=== PATIENT | male | born 1965 | race African-American/Black ===

== ENCOUNTER → 2016-09-03 | Outpatient (CLI) | payer BC ==
[~2016-09-03] MED LIST: ASPIR 8181 MG PO; LIPITOR TAB 2020 MG PO; LISINOPRIL5 MG PO; TOPROL XL 25 MG25 MG PO; ZESTRIL10 MG PO
== END ==
LOC: HEART 5 08:08
DX: R07.9 Chest pain, unspecified (principal); R53.83 Other fatigue
CPT/HCPCS: 78452; A9502

== ENCOUNTER → 2016-09-24 | Outpatient (CLI) | payer BC ==
[~2016-09-24] VITALS: Ht 167.6 cm; Wt 75.7 kg
[2016-09-24 06:45] LABS: RED BLOOD COUNT 4.12 M/UL (4.20-5.50); WHITE BLOOD COUNT 6.2 K/UL (4.5-11.0)
[2016-09-24 07:04] LABS: BUN/CREATININE RATIO 28 (0-10)
== END | disposition home or self-care (01) ==
LOC: CATH 06:12
PROVIDERS: Internal Medicine
DX: I25.118 Atherosclerotic heart disease of native coronary artery with other forms of angina pectoris (principal); I42.9 Cardiomyopathy, unspecified; I10 Essential (primary) hypertension; E78.5 Hyperlipidemia, unspecified; I25.2 Old myocardial infarction; Z79.899 Other long term (current) drug therapy; R06.02 Shortness of breath; F17.200 Nicotine dependence, unspecified, uncomplicated; F10.10 Alcohol abuse, uncomplicated
CPT/HCPCS: 36415; 80048; 85025; 85610; 85730; 93005; C1769; C1894; J1644; J7030; Q9963

== ENCOUNTER → 2020-07-01 | Outpatient (CLI) | payer BC, OTHER ==
[~2020-07-01] MED LIST changes: +ASPIRIN EC81 MG PO; +ATORVASTATIN CA20 MG PO; +LOPRESSOR 25 MG25 MG PO; +TOPROL XL50 MG PO; +VITAMIN B-1100 M1 PO; +ZITHROMAX500 MG PO
== END ==
LOC: HEART 5 08:09
DX: I25.10 Atherosclerotic heart disease of native coronary artery without angina pectoris (principal); I51.7 Cardiomegaly; I21.9 Acute myocardial infarction, unspecified; R94.39 Abnormal result of other cardiovascular function study
CPT/HCPCS: 78452; A9502

== ENCOUNTER → 2020-09-10 | Outpatient (CLI) | payer BC, OTHER | LOC: KOH-I 10:36 | DX: F17.210 Nicotine dependence, cigarettes, uncomplicated (principal) | CPT/HCPCS: 71271 ==

== ENCOUNTER → 2021-02-27 | Outpatient (CLI) | payer BC | LOC: KOH-I 09:21 | DX: R07.9 Chest pain, unspecified (principal); R19.7 Diarrhea, unspecified; K21.9 Gastro-esophageal reflux disease without esophagitis; K76.0 Fatty (change of) liver, not elsewhere classified | CPT/HCPCS: 76705 ==

== ENCOUNTER → 2021-04-10 | Outpatient (CLI) | payer BC | LOC: MRI 09:05 | DX: R10.11 Right upper quadrant pain (principal); R93.5 Abnormal findings on diagnostic imaging of other abdominal regions, including retroperitoneum; K83.8 Other specified diseases of biliary tract | CPT/HCPCS: 74181 ==

== ENCOUNTER → 2021-05-09 | Outpatient (CLI) | payer BC | LOC: NM 08:38 | DX: R10.11 Right upper quadrant pain (principal) | CPT/HCPCS: 78227; A9537; J2805 ==

== ENCOUNTER → 2021-07-17 | Outpatient (CLI) | payer BC ==
[2021-07-17 09:31] LABS: BUN/CREATININE RATIO 19 (0-10)
== END ==
LOC: OPSV2 08:00
PROVIDERS: Surgery
DX: Z01.818 Encounter for other preprocedural examination (principal); I10 Essential (primary) hypertension; I25.2 Old myocardial infarction
CPT/HCPCS: 80048; 93005

== ENCOUNTER → 2021-08-11 | Outpatient (CLI) | payer BC ==
[~2021-08-11] MED LIST changes: +ALLERGY RELIEF5 MG PO; +FLOMAX 0.4 MG0.4 MG PO; +FOLIC ACID 1 MG1 MG PO; +MUCINEX600 MG PO; +NITROSTAT 0.40.4 MG SL; +PROBIOTIC 4X C1 EACH PO; +PROTONIX 40 MG40 M1 PO; +SINGULAIR10 MG PO; +VITAMIN B-121000 MCG PO; +VITAMIN B12-FO1 EACH PO; +VITAMIN D3125 MCG/0. PO; +ZESTRIL 40 MG T40 MG PO; +ZETIA10 MG PO
== END ==
LOC: CATH 08:09
DX: I25.118 Atherosclerotic heart disease of native coronary artery with other forms of angina pectoris (principal); F17.200 Nicotine dependence, unspecified, uncomplicated; I11.0 Hypertensive heart disease with heart failure; I42.9 Cardiomyopathy, unspecified; E78.5 Hyperlipidemia, unspecified; I50.9 Heart failure, unspecified; I27.20 Pulmonary hypertension, unspecified; I25.2 Old myocardial infarction; N40.1 Benign prostatic hyperplasia with lower urinary tract symptoms; K57.30 Diverticulosis of large intestine without perforation or abscess without bleeding; K21.9 Gastro-esophageal reflux disease without esophagitis; M10.9 Gout, unspecified; E29.1 Testicular hypofunction; D50.9 Iron deficiency anemia, unspecified; D51.0 Vitamin B12 deficiency anemia due to intrinsic factor deficiency; G62.9 Polyneuropathy, unspecified; Z79.82 Long term (current) use of aspirin; Z79.02 Long term (current) use of antithrombotics/antiplatelets; Z79.811 Long term (current) use of aromatase inhibitors; Z79.1 Long term (current) use of non-steroidal anti-inflammatories (NSAID); Z79.810 Long term (current) use of selective estrogen receptor modulators (SERMs); Z79.83 Long term (current) use of bisphosphonates
CPT/HCPCS: 99152; C1769; C1887; C1894; J1644; J2250; J3010; J7040; Q9967

== ENCOUNTER → 2021-09-11 | Outpatient (CLI) | payer BC | LOC: KOH-I 10:30 | DX: F17.200 Nicotine dependence, unspecified, uncomplicated (principal) | CPT/HCPCS: 71271 ==